=== PATIENT | male | born 1960 | race Caucasian/White ===

== ENCOUNTER 2023-06-13 18:17 | Emergency (ER) | payer OTHER ==
[~2023-06-13] VITALS: Ht 175.3 cm; Wt 72.6 kg
[~2023-06-13 18:17] MED LIST: ACET500 PO; ALBU90OI INH; ANTACID; ATOR20 PO; BUSP10 PO; CALAN SR240 M1 PO; DOXY100 PO; HYDCHL25 PO; METO25 PO; METPHE10 PO; OMEP20ER PO; QUETIAPINE FUMA50 M3 PO; ROSU5; THERA-D2000 UNIT PO; VERA80 PO
[2023-06-13 18:56] LABS: BASOPHILS ABSOLUTE AUTO 0.06 K/mm3 (0.00-0.23); BASOPHILS PERCENT AUTO 1 % (0-2); EOSINOPHILS ABSOLUTE AUTO 0.06 K/mm3 (0.00-0.68); EOSINOPHILS PERCENT AUTO 1 % (0-6); Hematocrit 50.5 % (37.0-53.0); IMMATURE GRAN ABSOLUTE AUTO 0.03 K/mm3 (0.00-0.10); IMMATURE GRAN PERCENT AUTO 0 % (0-1); LYMPHOCYTES ABSOLUTE AUTO 1.24 K/mm3 (0.84-5.20); LYMPHOCYTES PERCENT AUTO 14 % (21-46); MONOCYTES ABSOLUTE AUTO 0.56 K/mm3 (0.16-1.47); MONOCYTES PERCENT AUTO 6 % (4-13); Mean Corpuscular HGB 29.3 pg (26.0-34.0); Mean Corpuscular HGB Conc 35.6 g/dL (31.5-36.5); Mean Corpuscular Volume 82 fL (80-100); Mean Platelet Volume 10.5 fL (9.1-12.4); NEUTROPHILS ABSOLUTE AUTO 6.93 K/mm3 (1.96-9.15); NEUTROPHILS PERCENT AUTO 78 % (41-73); Platelet Count 363 K/mm3 (150-400); RDW Coefficient Variation 12.9 % (11.7-14.2); RDW Standard Deviation 37.7 fL (35.1-46.3); Red Blood Cell Count 6.15 M/mm3 (4.30-5.90); White Blood Cell Count 8.88 K/mm3 (4.00-11.30)
[2023-06-13 19:35] LABS: Albumin, Blood 4.3 g/dL (3.4-5.0); Albumin/Globulin Ratio 1.1 (0.8-1.8); Bilirubin, Total 1.2 mg/dL (0.1-1.0); Bun/Creatinine Ratio 10.4 (12.0-20.0); Calcium, Blood 9.7 mg/dL (8.5-10.1); Creatinine, Blood 0.96 mg/dL (0.60-1.20); Globulin, Blood 3.8 g/dL (2.2-4.0); Potassium, Blood 4.1 mmol/L (3.5-5.5); Total Protein, Blood 8.1 g/dL (6.4-8.2)
[2023-06-13] MEDS ORDERED: NS 1,000 ML IV SCH (20:40)
[2023-06-13 21:29] LABS: Influenza A, PCR NEGATIVE (NEGATIVE); Influenza B, PCR NEGATIVE (NEGATIVE); Resp Syncytial Virus, PCR NEGATIVE (NEGATIVE); SARS-Cov-2 (COVID-19) PCR, MMC NEGATIVE (NEGATIVE)
== END 2023-06-13 21:59 | disposition home or self-care (01) ==
LOC: ER 18:17
PROVIDERS: Emergency Medicine; Student in an Organized Health Care Education/Training Program
DX: J06.9 Acute upper respiratory infection, unspecified (principal); B97.89 Other viral agents as the cause of diseases classified elsewhere
CPT/HCPCS: 0241U; 71046; 80053; 84484; 85025; 93005; 93010; 96360; 99285-25; J7030